=== PATIENT | male | born 1965 | race Caucasian/White ===

== ENCOUNTER → 2017-02-12 | Outpatient (CLI) | payer OTHER ==
[2017-02-12 14:02] LABS: ALT/SGPT 34 U/L (12-78); AST/SGOT 26 U/L (15-37); BLOOD UREA NITROGEN 20 mg/dl (7-18); BUN/CREATININE RATIO 20.4 (10-20); CALCIUM 8.9 mg/dl (8.5-10.1); CARBON DIOXIDE 29 mmol/L (21-32); CHLORIDE 106 mmol/L (98-107); CHOLESTEROL 212 mg/dl (0-200); GLUCOSE 88 mg/dl (70-99); POTASSIUM 3.9 mmol/L (3.5-5.1); SODIUM 140 mmol/L (136-145)
[2017-02-12 14:04] LABS: ALB/GLOB RATIO 1.1 (0.9-2); ALKALINE PHOSPHATASE 90 U/L (45-117); CHOLESTEROL/HDL RATIO 5.9; HDL CHOLESTEROL 36 mg/dl; TRIGLYCERIDES 406 mg/dl (0-150)
== END | disposition home or self-care (01) ==
LOC: C.LABMFLN 08:24
PROVIDERS: ATTEND Family Medicine
DX: E78.5 Hyperlipidemia, unspecified (principal); I10 Essential (primary) hypertension

== ENCOUNTER → 2017-08-04 | Outpatient (CLI) | payer OTHER | END | disposition home or self-care (01) | LOC: C.PATHSPEC 17:45 | PROVIDERS: ATTEND Family Medicine | DX: C44.799 Other specified malignant neoplasm of skin of left lower limb, including hip (principal) ==

== ENCOUNTER → 2017-09-08 | Outpatient (CLI) | payer OTHER | END | disposition home or self-care (01) | LOC: C.PATHSPEC 09:31 | PROVIDERS: ATTEND Family Medicine | DX: D23.72 Other benign neoplasm of skin of left lower limb, including hip (principal) ==

== ENCOUNTER → 2018-01-10 | Outpatient (CLI) | payer OTHER | END | disposition home or self-care (01) | LOC: C.LABSPEC 13:22 | PROVIDERS: ATTEND Family Medicine | DX: L02.415 Cutaneous abscess of right lower limb (principal) ==

== ENCOUNTER → 2018-01-14 | Outpatient (CLI) | payer OTHER ==
[2018-01-14 13:54] LABS: BLOOD UREA NITROGEN 15 mg/dl (7-18); CALCIUM 8.8 mg/dl (8.5-10.1); CARBON DIOXIDE 31 mmol/L (21-32); CREATININE 1.06 mg/dl (0.60-1.40); GLUCOSE 103 mg/dl (70-99); POTASSIUM 3.9 mmol/L (3.5-5.1); SODIUM 139 mmol/L (136-145)
== END | disposition home or self-care (01) ==
LOC: C.LABMFLN 07:14
PROVIDERS: ATTEND Family Medicine
DX: I10 Essential (primary) hypertension (principal)

== ENCOUNTER 2019-05-22 05:53 | Inpatient (IN) ==
--- NOTE | 2019-05-04 09:17 | PAT Medication Instructions ---
Medication Instructions Date of Service May 04, 2019 Home Medications Medication Instructions Recorded cyclobenzaprine 10 mg tablet 10 mg PO TID #90 tab 05/01/19 oxycodone-acetaminophen 7.5 mg-325 1 tab PO Q6H PRN #30 tab 05/01/19 mg tablet acetaminophen 500 mg PO Q6H PRN cyclobenzaprine 10 mg tablet 10 mg PO TID fluticasone propionate 2 spray INTRANASAL QAM gabapentin 300 mg PO QID ibuprofen [Advil] 200 mg PO Q6H PRN multivitamin 1 tab PO QAM oxycodone-acetaminophen 7.5 mg-325 mg tablet 1 tab PO Q6H PRN ASK your surgeon for instructions ibuprofen [Advil] 200 mg PO Q6H PRN DO NOT take the morning of surgery cyclobenzaprine 10 mg tablet 10 mg PO TID multivitamin 1 tab PO QAM Take morning of surgery With a small sip of water, OTHERWISE NOTHING TO EAT OR DRINK AFTER MIDNIGHT: acetaminophen 500 mg PO Q6H PRN (okay to take up to 4 hours prior to surgery if needed) fluticasone propionate 2 spray INTRANASAL QAM gabapentin 300 mg PO QID oxycodone-acetaminophen 7.5 mg-325 mg tablet 1 tab PO Q6H PRN (okay to take up to 4 hours prior to surgery if needed) Take evening before surgery acetaminophen 500 mg PO Q6H PRN (if needed) cyclobenzaprine 10 mg tablet 10 mg PO TID gabapentin 300 mg PO QID oxycodone-acetaminophen 7.5 mg-325 mg tablet 1 tab PO Q6H PRN (if needed) Other Notes If you have any questions please call us at [phone] or [phone] or [phone] or [phone]
--- NOTE | 2019-05-08 11:26 | Anesthesiology Consultation ---
Date of Service May 08, 2019 Assessment & Plan (1) Encounter for pre-operative examination: - Tachycardia in setting of back pain/recent steroid (HR in the 130's-140's at PAT visit/sinus tachy per unconfirmed EKG done 05/08/19). S/P unremarkable exer cise stress test/ECHO 07/2018. Reviewed with Dr. Allen- recommendation to defer to PCP if any further cardiac evaluation or testing needed prior to surgery from their perspective. Awaiting [facility] optimization[facility] Phoenix). - Possible difficult intubation (due to anatomy) Chart Review Chart Review: Patient seen in Pre Admission Testing Teaching & Discussion Pre-Anesthesia Teaching/Discussion Notes: Instructed NPO after midnight before surgery,except medications with 15 cc of water. Medication instructions provided according to the [facility] guidelines. History Surgery Operation Date: 05/22/19 11:25 Proposed Procedures p L4-L5 Transforaminal Lumber Interbody Fusion with Spinal Cord Monitoring - Arnaud Vizcarra DO Height/Weight Height: 6 ft 1 in Weight: 123.2 kg Allergies Allergy/AdvReac Type Severity Reaction Status Date / Time No Known Allergies Allergy Verified 05/01/19 14:09 Medications Home Medications Medication Instructions Recorded Confirmed Last Taken acetaminophen 500 mg PO Q6H PRN 05/01/19 05/01/19 Unknown cyclobenzaprine 10 mg tablet 10 mg PO TID #90 tab 05/01/19 Unknown fluticasone propionate 2 spray INTRANASAL QAM 05/01/19 05/01/19 Unknown gabapentin 300 mg PO QID 05/01/19 05/01/19 Unknown ibuprofen [Advil] 200 mg PO Q6H PRN 05/01/19 05/01/19 Unknown multivitamin 1 tab PO QAM 05/01/19 05/01/19 Unknown oxycodone-acetaminophen 7.5 mg-325 1 tab PO Q6H PRN #30 tab 05/01/19 Unknown mg tablet Past Medical History Medical History Asthma stable/no current inhalers or issues Bulging lumbar disc Chronic back pain s/p prednisone completed ~04/30/19 History of kidney stones Obesity Exercise / Class Metabolic Activity III < 4 Walking/Shop/Light housework Past Family History Family History Father Heart disease Kidney stones Cancer Mother Cancer Past Surgical History Surgical History H/O: vasectomy History of esophagogastroduodenoscopy (EGD) History of oral surgery WTE Hx of arthroscopy of right knee Hx of colonoscopy Past Anesthesia History No Family Hx of Anesthesia Complications and Other *Patient: Difficult for anesthesia induction/needed additional medications with previous EGD and WTE.* History of PONV No Hx of PONV and No Hx of Motion Sickness Social History Smoking Status: Never smoker Do You Dip or Chew Tobacco: No Hx Alcohol Use: Yes alcohol intake frequency: holidays/special occasions only Hx Substance Use: No substance use type: does not use Review of Systems Patient denies chest pain, shortness of breath, dyspnea on exertion, joint pain, reflux, cough, wheezing, palpitations. Physical Exam Vital Signs VITALS BP 144/93 P 130 TEMP 98.0 SP02 96%RA RESP 18 PHYSICAL Full neck and c-spine range of motion. Full TMJ range of motion. TMD 2 finger breaths (difficult to palpate) Mallampati Score 3 Dentition: intact Lungs: clear throughout to auscultation Cardiac: regular rhythm, tachycardic, no murmurs noted Spine: normal Carotid arteries: negative bruit Extremities: no edema Testing Laboratory Results 05/08/19 11:50 05/08/19 11:53 PT 9.9 Seconds (9.0-12.0) 05/08/19 11:50 INR 1.0 (0.9-1.1) 05/08/19 11:50 APTT 27.1 Seconds (21.0-31.0) 05/08/19 11:50 Urine Color Yellow 05/08/19 11:50 Urine Appearance Clear (Clear) 05/08/19 11:50 Urine pH 5.0 (4.5-7.5) 05/08/19 11:50 Ur Specific [place] 1.022 (1.000-1.030) 05/08/19 11:50 Urine Protein Negative (Negative) 05/08/19 11:50 Urine Glucose (UA) Negative (Negative) 05/08/19 11:50 Urine Ketones Negative (Negative) 05/08/19 11:50 Urine Nitrite Negative (Negative) 05/08/19 11:50 Ur Leukocyte Esterase Negative (Negative) 05/08/19 11:50 Blood Type A Positive 05/08/19 11:50 Antibody Screen NEGATIVE 05/08/19 11:50 *Slight hemolysis on 05/08/19 labs* Electrocardiogram Date: 05/08/19 ST at 142bpm. iRBBB. *Unconfirmed report* Chest X-Ray Date: 05/08/19 Findings: + NAD Echocardiogram Date: 07/22/18 LVEF 65%. No RWMA. Mildly increased cLV wall thickness. Nondilated cardiac chambers. No significant valvular disease. Stress Test Date: 07/22/18 Type: exercise Treadmill exercise test was normal. 8 METS. 95% MPHR. PAC's with stress. No chest pain.
--- NOTE | 2019-05-08 12:16 | XRay Report ---
XR chest Pre-admission PA/Lat CLINICAL HISTORY: PAT preoperative evaluation COMPARISON STUDY: No previous studies for comparison. FINDINGS: The bones soft tissues and hemidiaphragms are normal. The cardiomediastinal silhouette is n ormal. The lungs are clear. The pulmonary vasculature is normal. IMPRESSION: Negative chest. The above report was generated using voice recognition software. It may contain grammatical, syntax or spelling errors. Electronically signed by: Bob Angeles M.D. 05/08/2019 12:15 PM
[2019-05-08 13:27] LABS: Basophils # (auto) 0.04 K/uL (0-0.2); Basophils % (auto) 0.6 %; Eosinophils # (auto) 0.16 K/uL (0-0.5); Eosinophils % (auto) 2.5 %; Immature Granulocytes # (auto) 0.02 K/uL (0.00-0.02); Immature Granulocytes % (auto) 0.3 %; Lymphocytes # (auto) 2.08 K/uL (1.2-3.4); Lymphocytes % (auto) 32.4 %; Mean Corpuscular Hemoglobin 30.6 pg (25-34); Mean Corpuscular Volume 89.9 fL (80-100); Mean Platelet Volume 9.8 fL (7.4-10.4); Monocytes # (auto) 0.69 K/uL (0.11-0.59); Monocytes % (auto) 10.8 %; Neutrophils # (auto) 3.42 K/uL (1.4-6.5); Neutrophils % (auto) 53.4 %; Platelet Count 210 K/uL (130-400); RDW Coefficient of Variation 13.9 % (11.5-14.5); Red Blood Count 5.23 M/uL (4.7-6.1); White Blood Count 6.41 K/uL (4.8-10.8)
[2019-05-08 13:39] LABS: Partial Thromboplastin Time 27.1 Seconds (21.0-31.0); Prothrombin Time 9.9 Seconds (9.0-12.0)
[2019-05-08 13:45] LABS: BUN Creatinine Ratio 12.5 (10-20); Calcium 8.9 mg/dl (8.5-10.1); Creatinine Clr Calc Pharmacy 103.4 ml/min; Est GFR (African American) 86.2; Est GFR (Non-African American) 74.4; Potassium 4.1 mmol/L (3.5-5.1)
[2019-05-08 14:13] LABS: Appearance Urine Clear (Clear); Bilirubin Urine Negative (Negative); Blood Urine Negative (Negative); Color Urine Yellow; Glucose Urine UA Negative (Negative); Ketones Urine Negative (Negative); Leukocyte Esterase Urine Negative (Negative); Nitrite Urine Negative (Negative); Protein Urine Negative (Negative); Specific Gravity Urine 1.022 (1.000-1.030); Urobilinogen Urine Negative (Negative)
[2019-05-22] MEDS ORDERED: CeleBREX 200 MG CAP PO SCH (06:00)
[2019-05-22] MEDS ORDERED: GABAPENTIN 900 MG DOSE PO SCH (06:00)
[2019-05-22] MEDS ORDERED: ACETAMINOPHEN 500 MG TAB PO SCH (06:00)
[2019-05-22] MEDS ORDERED: LR 15ML/HR IV SCH (06:00)
[2019-05-22] MEDS ORDERED: CEFAZOLIN 3000MG 72.5 ML IV SCH (06:00)
[2019-05-22] MEDS ORDERED: MIDAZOLAM HCL 1 MG/ML 2ML VIAL ONE (06:41)
[2019-05-22] MEDS ORDERED: fentaNYL citrate 100 MCG/2 ML VIAL ONE ×7 (06:42→09:43)
[2019-05-22] MEDS ORDERED: HYDROmorphone INJ 2 MG/ML SYR/VIAL ONE ×2 (06:42→09:39)
[2019-05-22] MEDS ORDERED: fentaNYL citrate 100 MCG/2 ML VIAL IV PRN (06:44)
[2019-05-22] MEDS ORDERED: ePHEDrine sulfate 50 MG/ML AMP IV PRN (06:44)
[2019-05-22] MEDS ORDERED: ATROPINE SULFATE 0.1 MG/ML 10ML SYR IV PRN (06:44)
[2019-05-22] MEDS ORDERED: ONDANSETRON INJ 2 MG/ML 2 ML VIAL IV PRN ×2 (06:44→12:04)
[2019-05-22] MEDS ORDERED: BACITRACIN INJ 50,000 UNIT VIAL ONE (06:57)
[2019-05-22] MEDS ORDERED: BUPIVACAINE 0.5 % 5 MG/1 ML MPF 30ML VIAL ONE (06:57)
[2019-05-22] MEDS ORDERED: BUPIVACAINE/EPINEPHRINE 0.5% MPF 1:200,000 10 ML VIAL ONE (06:59)
--- NOTE | 2019-05-22 07:26 | History & Physical Bridge Note ---
Date of Service May 22, 2019 History & Physical Bridge Note I have examined the patient, reviewed the History & Physical and in the interval since the performance of the History & Physical I have noted the following changes of clinical significance: no changes noted
--- NOTE | 2019-05-22 07:27 | History & Physical Report ---
Date of Service May 22, 2019 Assessment & Plan (1) Neurogenic claudication due to lumbar spinal stenosis: L4-L5 transforaminal lumbar interbody fusion Present on Admission?: Yes History of Present Illness Chief Complaint: Back and left leg pain Primary Care Provider: Chato Phoenix MD This is a 54-year-old male presents with chronic persistent back and leg pain after failing extensive course of nonoperative care is here for surgical intervention. Allergies Allergy/AdvReac Type Severity Reaction Status Date / Time morphine AdvReac Mild Nausea Verified 05/22/19 06:53 Home Medications Home Medications Medication Instructions Recorded Confirmed Type acetaminophen 500 mg PO Q6H PRN 05/01/19 05/22/19 History cyclobenzaprine 10 mg tablet 10 mg PO TID #90 tab 05/01/19 05/22/19 Rx fluticasone propionate 2 spray INTRANASAL QAM 05/01/19 05/22/19 History gabapentin 300 mg PO QID 05/01/19 05/22/19 History ibuprofen [Advil] 200 mg PO Q6H PRN 05/01/19 05/22/19 History multivitamin 1 tab PO QAM 05/01/19 05/22/19 History oxycodone-acetaminophen 7.5 mg-325 1 tab PO Q6H PRN #30 tab 05/01/19 05/22/19 Rx mg tablet metoprolol succinate 75 mg PO DAILY 05/18/19 05/22/19 History Past Med/Surg History Medical History Asthma stable/no current inhalers or issues Bulging lumbar disc Chronic back pain s/p prednisone completed ~04/30/19 History of kidney stones Obesity Surgical History H/O: vasectomy History of esophagogastroduodenoscopy (EGD) History of oral surgery WTE Hx of arthroscopy of right knee Hx of colonoscopy Family History Father Heart disease Kidney stones Cancer Mother Cancer Social History (Updated 05/09/19 @ 10:15 by Theresa Hernandez MA) Preferred Language: Lao Communication Ability: Effective Log Yard Manager Required: No Beliefs That Will Affect Care: None Current Living Situation: Spouse Feels Safe at Home: Yes Safety Concerns: Feels Safe At This Time Smoking Status: Never smoker Do You Dip or Chew Tobacco: No ; Second Hand Exposure: No ; Hx Alcohol Use: Yes Hx Substance Use: No Childhood Exposure to Second-Hand Smoke: No Seatbelt Use: always Sunscreen Use: Yes Physical Exam Physical Exam: Patient is alert and oriented neurologically intact. Results & Data Vital Signs (Past 12 Hours) Vital Signs Temp Pulse Resp BP Pulse Ox 05/22/19 06:41 36.6 C 98 H 20 144/93 H 98
[2019-05-22] MEDS ORDERED: FLOSEAL HEMOSTATIC MATRIX 10ML TOP ONE (08:26)
[2019-05-22] MEDS ORDERED: PHENYLEPHRINE 100MCG/ML 5ML SYR ONE (08:34)
[2019-05-22] MEDS ORDERED: METOPROLOL TARTRATE 1 MG/ML VIAL IV ONE ×2 (08:34→10:22)
[2019-05-22] MEDS ORDERED: ROCURONIUM BROMIDE 10 MG/ML 5 ML VIAL ONE (08:57)
[2019-05-22] MEDS ORDERED: GLYCOPYRROLATE 0.2 MG/ML VIAL ONE (09:39)
[2019-05-22] MEDS ORDERED: NEOSTIGMINE METHYLSULFATE 1 MG/ML 10ML VIAL ONE (09:39)
[2019-05-22] MEDS ORDERED: LIDOCAINE HCL 2% 2 ML VIAL/AMP(20MG/ML) INFIL ONE (09:39)
[2019-05-22] MEDS ORDERED: ONDANSETRON INJ 2 MG/ML 2 ML VIAL ONE (09:39)
[2019-05-22] MEDS ORDERED: PROPOFOL IV EMULSION 10 MG/ML 20 ML VIAL IV ONE (09:39)
[2019-05-22] MEDS ORDERED: DEXAMETHASONE SOD INJ 4 MG/ML VIAL ONE (09:39)
[2019-05-22] MEDS ORDERED: ESMOLOL HCL INJ 10 MG/ML 10ML VIAL IV ONE (09:40)
--- NOTE | 2019-05-22 09:53 | Operative Report ---
Post Operative Report Pre & Post Diagnosis Operation Date: 05/22/19 07:45 Pre-Op Diagnosis: Lumbar spinal stenosis with neurogenic claudication Post-Op Diagnosis: Lumbar spinal stenosis with neurogenic claudication I identified the patient and participated in the time-out.: Yes Procedure Operation Date: 05/22/19 07:45 Actual Procedures 1 lumbar decompression with bilateral medial facetectomies foraminotomies L3-4 L4-5. #2 posterior spinal fusion L4-5 per #3 placement posterior instrumentation L4-5. #4 interbody fusion L4-5. #5 placement of titanium cage 13 x 26 mm at L4-5. #6 placement of locally harvested morselized autograft in the posterior lateral gutters. #7 placement infuse collagen sponge, master graft in the posterior lateral gutters and ostial amp and interbody space. Surgeon Arnaud Vizcarra, DO Sustainable Products Marketing Manager Chato Scherer Estimated Blood Loss 150 Findings See Below The patient is 6 foot 1 inches tall weighing over 120 kg with a BMI in excess of 35. The patient's body habitus did add significant technical difficulty throughout the procedure requiring her deepest retractors and longest instruments in order to perform. This added at least 50% increase in operative time. Specimens None Indications This is a 54-year-old male presents with above-mentioned diagnosis after failed extensive course of nonoperative care is here for surgical intervention. Description of Procedure Patient was met with identified informed consent obtained. Patient was then taken to the operative suite underwent intubation placed in a prone position the Ottoniel table on top of the Fernando frame. All bony prominences well-padded eyes inspected to ensure no external pressure placed upon the peer at this point the lumbar spine was prepped and draped in normal sterile fashion. Sharp dissection with the assistance of Bovie cautery was performed down to and exposing the lamina and transverse processes of L4 and L5. From a caudal cephalad fashion complete laminectomy of L4 partial laminectomy of L3 was performed including bilateral medial facetectomies and foraminotomies addressing severe spinal stenosis. Pedicle screws were then placed in L4 and L5 bilaterally with assistance of fluoroscopy the purposes rayo placed. Believe a transforaminal approach on the left complete discectomy was performed endplates curetted to subcortical bleeding bone and a 13 x 26 mm titanium cage filled with ostium bone graft tapped position. Then compressed locked into final position bilaterally. The transverse processes of L4 and L5 bur to subcortical bleeding bone. Infuse collagen sponge master graft local autograft was then placed in the posterior lateral gutters. 15 round MITA drain inserted. The incision was then closed with 1 Vicryl in the fascia 2-0 Vicryl subcutaneously and 4 Monocryl for final skin closure. Steri-Strip sterile dressings placed. Patient will continue PACU stable condition. Please note Chato Scherer present at the entire procedure involved in patient positioning complex portions of the surgery and final skin closure. I attest to the content of the Intraoperative Record and any orders documented therein. Any exceptions are noted below.
--- NOTE | 2019-05-22 10:22 | Fluoroscopy Report ---
INTRAOPERATIVE RADIOGRAPHS CLINICAL HISTORY: L4-L5 spinal fusion. Fluoroscopy time: 20 seconds. FINDINGS: 2 spot fluoroscopic views of the lumbar spine are presented. There has been discectomy at L 4-L5 with laminectomy and posterior fusion at this level. Interpedicular screws are in place. The ort hopedic hardware appears intact. IMPRESSION: Intraoperative images from L4-L5 spinal fusion as above. Electronically signed by: Arden Rivera M.D. 05/22/2019 10:20 AM
[2019-05-22] MEDS ORDERED: METOCLOPRAMIDE HCL INJ 5 MG/ML 2 ML VIAL IV STA (10:50)
[2019-05-22] MEDS ORDERED: METOCLOPRAMIDE HCL INJ 5 MG/ML 2 ML VIAL ONE (10:51)
--- NOTE | 2019-05-22 11:11 | Anesthesiology Progress Note ---
Date of Service May 22, 2019 Anesthesia Post Procedure Vital Signs Vital Signs: Temp Pulse Pulse Resp BP BP Pulse Ox 05/22/19 11:00 90 12 117/71 96 05/22/19 10:50 87 12 115/69 95 05/22/19 10:40 87 12 125/72 94 05/22/19 10:30 88 15 124/73 95 05/22/19 10:20 88 12 110/90 93 05/22/19 10:14 99.1 F 93 H 15 144/87 H 94 05/22/19 06:41 97.9 F 98 H 20 144/93 H 98 Pain Intensity Left Leg: Pain Intensity: 2 Transfer of Care Handoff Completed per policy Notes Mental Status: alert / awake / arousable and participated in evaluation Patient Amnestic to Procedure: Yes Nausea / Vomiting: adequately controlled Pain: adequately controlled Airway Patency, RR, SpO2: stable & adequate BP & HR: stable & adequate Hydration State: stable & adequate Anesthetic Complications: no major complications apparent and Pt Satisfied with anesthetic care
[2019-05-22] MEDS ORDERED: LORazepam 0.5 MG TAB PO PRN (12:04)
[2019-05-22] MEDS ORDERED: DO NOT ADMINISTER FLU VACCINE PRN (12:04)
[2019-05-22] MEDS ORDERED: ACETAMINOPHEN 500 MG TAB PO PRN ×2 (12:04)
[2019-05-22] MEDS ORDERED: ONDANSETRON 4 MG OD TAB PO PRN (12:04)
[2019-05-22] MEDS ORDERED: METOCLOPRAMIDE HCL INJ 5 MG/ML 2 ML VIAL IV PRN (12:04)
[2019-05-22] MEDS ORDERED: ACETAMINOPHEN 1,000 MG/100 ML VIAL IV PRN (12:04)
[2019-05-22] MEDS ORDERED: HYDROmorphone INJ 1 MG/ML SYRINGE IV PRN (12:04)
[2019-05-22] MEDS ORDERED: HYDROmorphone INJ 0.5 MG/0.5 ML SYR IV PRN (12:04)
[2019-05-22] MEDS ORDERED: DO NOT ADMINISTER PNEUMOCOCCAL VACCINE PRN (12:04)
[2019-05-22] MEDS ORDERED: MAGNESIUM HYDROXIDE SUSP 30 ML UDC PO PRN (12:04)
[2019-05-22] MEDS ORDERED: ALUMINUM/MAGNESIUM SUSP 30 ML UDC PO PRN (12:04)
[2019-05-22] MEDS ORDERED: PROMETHAZINE HCL 12.5 MG in SODIUM CHLORIDE 0.9% 50 ML IV PRN (12:04)
[2019-05-22] MEDS ORDERED: LORazepam 0.5 MG/1 ML VIAL IV PRN (12:04)
[2019-05-22] MEDS ORDERED: TRAMADOL HCL 50 MG TABLET PO PRN (12:04)
[2019-05-22] MEDS ORDERED: NALOXONE HCL 0.4 MG/1 ML VIAL/CARP IV PRN (12:04)
[2019-05-22] MEDS ORDERED: FAMOTIDINE 20 MG TAB PO PRN (12:04)
[2019-05-22] MEDS ORDERED: bisacodyL 10 MG SUPP PR PRN (12:04)
[2019-05-22] MEDS ORDERED: SOD PHOSPHATE/SOD BIPHOSPHATE ENEMA 132 ML BTL PR PRN (12:04)
[2019-05-22] MEDS: SODIUM CHLORIDE 0.9% 1000ML 1,000 ML IV SCH ×2 (12:33→18:59)
[2019-05-22] MEDS: KETOROLAC 30 MG/ML VIAL IV SCH ×2 (13:07→20:18)
[2019-05-22] MEDS: GABAPENTIN 300 MG CAP PO SCH ×3 (13:07→20:17)
[2019-05-22] MEDS: CEFAZOLIN 2000MG 2,000 MG/15 ML SYR IV SCH ×2 (15:50→23:47)
[2019-05-22] MEDS ORDERED: Nursing to Pharmacy Communication ONE (15:52)
[2019-05-22] MEDS ORDERED: COUGH DROP (SUGAR FREE) LOZ 24 LOZ/1 BOX BUCCAL PRN (15:54)
[2019-05-22] MEDS: DOCUSATE SODIUM/SENNA 50/8.6MG TAB PO SCH (20:18)
[2019-05-23] MEDS: SODIUM CHLORIDE 0.9% 1000ML 1,000 ML IV SCH (01:33)
[2019-05-23] MEDS: KETOROLAC 30 MG/ML VIAL IV SCH ×2 (01:33→07:35)
[2019-05-23] MEDS: POLYETHYLENE (MIRALAX) 17 GM PACK PO SCH ×4 (05:34→23:18)
[2019-05-23 05:36] LABS: Basophils # (auto) 0.01 K/uL (0-0.2); Basophils % (auto) 0.1 %; Hematocrit (blood only) 36.4 % (42-52); Hemoglobin 12.5 g/dL (14.0-18.0); Immature Granulocytes # (auto) 0.05 K/uL (0.00-0.02); Immature Granulocytes % (auto) 0.3 %; Lymphocytes # (auto) 1.59 K/uL (1.2-3.4); Lymphocytes % (auto) 10.4 %; Mean Corpuscular Hemoglobin 29.7 pg (25-34); Mean Corpuscular Hgb Conc 34.3 g/dL (32-36); Mean Corpuscular Volume 86.5 fL (80-100); Mean Platelet Volume 9.6 fL (7.4-10.4); Monocytes # (auto) 1.32 K/uL (0.11-0.59); Monocytes % (auto) 8.6 %; Neutrophils # (auto) 12.38 K/uL (1.4-6.5); Neutrophils % (auto) 80.6 %; Platelet Count 223 K/uL (130-400); RDW Coefficient of Variation 14.2 % (11.5-14.5); RDW Standard Deviation 44.5 fL (36.4-46.3); Red Blood Count 4.21 M/uL (4.7-6.1); White Blood Count 15.35 K/uL (4.8-10.8)
[2019-05-23 06:05] LABS: BUN Creatinine Ratio 21.7 (10-20); Calcium 8.6 mg/dl (8.5-10.1); Creatinine Clr Calc Pharmacy 104.3 ml/min; Est GFR (African American) 88.1; Potassium 4.1 mmol/L (3.5-5.1)
--- NOTE | 2019-05-23 07:37 | Orthopedic Progress Note ---
Date of Service May 23, 2019 Assessment & Plan (1) Neurogenic claudication due to lumbar spinal stenosis: At this time we will continue physical therapy monitor his MITA output hopefully discharge home in the next few days. Present on Admission?: Yes Subjective Back pain controlled leg symptoms markedly improved. Physical Exam Physical Exam: Patient is ambulating halls is good strength testing appears comfortable. Results & Data Vital Signs (Past 12 Hours) Vital Signs Temp Pulse Resp BP Pulse Ox 05/23/19 03:25 36.6 C 106 H 16 155/79 H 94 05/22/19 23:33 37.1 C 106 H 17 125/76 94
--- NOTE | 2019-05-23 08:23 | Anesthesiology Progress Note ---
Date of Service May 23, 2019 Anesthesia Post Procedure Vital Signs Vital Signs: Temp Pulse Pulse Resp BP Pulse Ox 05/23/19 07:56 36.6 C 109 H 16 148/84 H 99 05/23/19 03:25 36.6 C 106 H 16 155/79 H 94 05/22/19 23:33 37.1 C 106 H 17 125/76 94 05/22/19 18:51 36.8 C 119 H 18 129/79 94 05/22/19 13:35 93 H 20 134/81 100 05/22/19 12:49 93 H 17 127/77 96 05/22/19 12:18 36.5 C 87 16 112/73 98 05/22/19 11:45 36.5 C 84 16 113/76 94 05/22/19 11:30 36.4 C L 91 H 15 125/83 94 05/22/19 11:20 83 12 116/71 95 05/22/19 11:10 36.2 C L 88 12 128/69 94 05/22/19 11:00 90 12 117/71 96 05/22/19 10:50 87 12 115/69 95 05/22/19 10:40 87 12 125/72 94 05/22/19 10:30 88 15 124/73 95 05/22/19 10:20 88 12 110/90 93 05/22/19 10:14 37.3 C 93 H 15 144/87 H 94 Pain Intensity Left Leg: Pain Intensity: 2 Back: Pain Intensity: 3 Notes Mental Status: alert / awake / arousable and participated in evaluation Patient Amnestic to Procedure: Yes Nausea / Vomiting: adequately controlled Pain: adequately controlled Airway Patency, RR, SpO2: stable & adequate BP & HR: stable & adequate Hydration State: stable & adequate Anesthetic Complications: no major complications apparent and Pt Satisfied with anesthetic care
[2019-05-23] MEDS: FLUTICASONE PROPIONATE NA SPR 16 GM BTL SCH (08:55)
[2019-05-23] MEDS: MULTIVITAMIN TAB PO SCH (08:56)
[2019-05-23] MEDS: METOPROLOL SUCC 25MG EXT REL TAB PO SCH (08:56)
[2019-05-23] MEDS: OXYCODONE HCL IR 5 MG TAB (IMMEDIATE RELEASE) PO PRN ×2 (16:10→20:39)
[2019-05-23] MEDS: DOCUSATE SODIUM/SENNA 50/8.6MG TAB PO SCH (20:39)
[2019-05-24] MEDS: POLYETHYLENE (MIRALAX) 17 GM PACK PO SCH (05:46)
[2019-05-24] MEDS: OXYCODONE HCL IR 5 MG TAB (IMMEDIATE RELEASE) PO PRN (08:18)
[2019-05-24] MEDS: METOPROLOL SUCC 25MG EXT REL TAB PO SCH (09:37)
[2019-05-24] MEDS: MULTIVITAMIN TAB PO SCH (09:37)
[2019-05-24] MEDS: FLUTICASONE PROPIONATE NA SPR 16 GM BTL SCH (09:37)
--- NOTE | 2019-05-24 10:26 | Discharge Summary ---
Date of Service May 24, 2019 Admission HPI Per Admitting Provider This is a 54-year-old male presents with chronic persistent back and leg pain after failing extensive course of nonoperative care is here for surgical intervention. Principal Diagnosis Thoracic spinal stenosis with myelopathy Discharge Data Allergies Allergy/AdvReac Type Severity Reaction Status Date / Time morphine AdvReac Mild Nausea Verified 05/22/19 06:53 Consultations 05/22/19 12:04 Consult Case Management - Discharge Planning Routine Procedures Performed Operation Date: 05/22/19 07:45 Actual Procedures p L4-L5 Transforaminal Lumber Interbody Fusion Use of Osteoamp and Infuse. (Not Applicable) - Arnaud Vizcarra DO Ordered Studies 05/22/19 07:45 FL fluoroscopy <1hr Routine FL lumbar spine 2-3V Routine Hospital Course (1) Neurogenic claudication due to lumbar spinal stenosis: Patient underwent lumbar decompression fusion tolerance was taken to orthopedic for postoperative. Postop day 1 he was up and ambulating progressed nicely postop day #2. MITA drain decreasing probably. Pain well controlled. Neurologically intact. Subsequently discharged home. Discharge orders and instructions from the chart for further review. Total Time Total Time Spent Total Time Spent (In Minutes): 20 minutes Discharge Plan Discharge Items Patient Disposition: Home - Self-Care Reason For Visit: LUMBAR SPINAL STENOSIS W/O NEUROGENIC CLAUDICATION Discharge Diagnosis: lumbar stenosis Activity: As commented below Non-emergency contact: Primary Care Provider Call non-emergency contact if: you have any medication questions Follow-up/Referrals: Chato Phoenix MD [Primary Care Provider] - Diet: Regular Addtl Attending Provider Instructions: ACTIVITY RECOMMENDATIONS: SELF CARE INSTRUCTIONS AFTER THORACIC/LUMBAR FUSIONS 1. You may walk to your tolerance. It is good exercise for your legs and back. Expect some back and intermittent leg aches and pains. 2. You may perform "counter-top" level activities (make a sandwich, bill with a project, etc.). 3. No bending or lifting of more than 10 pounds or back twisting of any nature (roll like a log when turning in bed). 4. You may ride in a car for 20-30 minutes at a time. No driving until after your first visit with your doctor. 5. Frequent changes of position and restricting sitting to 30 minutes at a time will help limit the amount of back spasms and stiffness you may experience. 6. You may discontinue the use of ambulatory aids (cane, crutches, etc.) once your strength and confidence allow. 7. You may compounding scaler the shower and let water strike your incision when you arrive home at least once daily. Do not take a tub bath, sit in a hot tub or go into a swimming pool until after your first recheck in the office. SPECIAL CARE INSTRUCTIONS: VERY IMPORTANT TO READ AND REVIEW A. Your surgical incision has been closed with a cosmetic suture under the skin that will dissolve in about 6 weeks. In 14 days, you can use a pair of clean scissors and cut the suture that is left outside of the skin at the ends of your incision. 1. The small skin tapes can be removed 7 days after surgery if they have not fallen off by that point. 2. You may keep the wound open to air as much as possible to promote healing after post-op day number 5 unless told otherwise by your doctor. 3. If you think the wound looks like it is becoming infected (redness or worsening drainage) and/or you are experiencing fever, chill or worsening back pain and muscle spasms, contact the office so that we may evaluate you as soon as possible. B. Complications are uncommon, but please contact us if you have any signs or symptoms of: 1. wound infection (fever higher than 102.5 degrees F, redness, separation of wound, drainage, or increasing pain from the incision) 2. blood clots in legs (pain, swelling, redness and warmth in legs) 3. urinary tract infection (fever higher than 102.5 degrees F, burning upon urination or increased frequency of urination) 4. nerve problems (inability to walk on your toes or heels, numbness, loss of bowel or bladder control) 5. any other symptoms that concern you C. Please call the office at if you have any concerns or questions about your operation or recovery. D. No smoking! Smoking drastically decreases the chance of a solid fusion. E. Do not take any anti-inflammatory medications (Indocin, Advil, Motrin, Aspirin, Naprosyn, etc.) as these may inhibit the chance of a solid fusion. Tylenol is okay to take for pain. MANAGING PAIN AFTER SPINAL SURGERY 1. Narcotic medication is intended for short-term use and will be provided for surgical pain. Surgical pain usually lasts for a period of 4-6 weeks. Narcotic medication includes Percocet, Vicodin, Darvocet, Tylenol #3 or Lortab. 2. Longer-term pain is more appropriately treated with non-narcotic medication such as Tylenol ES. 3. Muscle spasm is not appropriately treated with narcotics. Muscle relaxers such as Soma, Flexeril or Skelaxin can be used along with Tylenol ES. 4. Remember that we all live with some "aches and pains". This is not unusual or uncommon after an injury or as we get older. a. Back pain is expected and may include muscle spasms for 4 to 6 weeks after surgery. The pain should gradually improve. If the pain worsens for no apparent reason, please contact the office. b. Intermittent leg pain may also be experienced and should not be concerned about unless it worsens for no apparent reason. If so, please contact the office. 5. We will provide appropriate medication within the normal guidelines of their prescribed use. We will also be very cautious and aware of potential abuse and extended duration of patients' medication needs. a. Pain medications are for your comfort and to assist with sleep and rest so that the tissue can heal. They are not provided in order to return to normal activity and should not be used through the day. To do so or worsening pain at night can result from ongoing tissue damage and development of tolerance to the prescribed medicine. 6. Please allow 2-3 days to process refills. Prescriptions will not be mailed but must be picked up at the office. FOLLOW UP VISIT: Keep your scheduled follow-up appointment. Any questions, please call the office at . Pending Studies at Discharge: No Stand-Alone Forms: [facility], Smoking Cessation Medications and DC Order Prescriptions: New tramadol 50 mg tablet 50 mg PO Q6H PRN (Reason: pain, moderate) Qty: 30 RF: 0 oxycodone 5 mg tablet 5 mg PO Q6H PRN (Reason: pain, severe) Qty: 30 RF: 0 Continued oxycodone-acetaminophen [Percocet] 7.5-325 mg tablet 1 tab PO Q6H PRN (Reason: pain) Qty: 30 RF: 0 cyclobenzaprine 10 mg tablet 10 mg PO TID Qty: 90 RF: 0 gabapentin 300 mg capsule 300 mg PO QID RF: 0 multivitamin Tablet 1 tab PO QAM RF: 0 acetaminophen 500 mg Tablet 500 mg PO Q6H PRN (Reason: Pain) RF: 0 ibuprofen [Advil] 200 mg Tablet 200 mg PO Q6H PRN (Reason: Pain) RF: 0 fluticasone propionate 50 mcg/actuation [place],Suspension 2 spray INTRANASAL QAM RF: 0 metoprolol succinate 50 mg tablet extended release 24 hr 75 mg PO DAILY RF: 0 Discharge Orders: Discharge Order (Routine); Ordered 05/24/19 Ordered By: Arnaud Vizcarra Admission Data Admit Date/Time: 05/22/19 10:57 Attending Provider: Arnaud Vizcarra Admit Provider: Arnaud Vizcarra Primary Care Provider: Chato Phoenix
== END 2019-05-24 11:44 | disposition home or self-care (01) | DRG 454 ==
LOC: ASU 05:53 → 3N 10:57